=== PATIENT | female | born 1995 | race Caucasian/White ===

== ENCOUNTER 2018-04-17 11:34 | Emergency (ER) | payer OTHER ==
[2018-04-17] MEDS ORDERED: AMOXICILLIN/CLAVULANATE POT 875/125 MG TAB PO ONE (12:20)
--- NOTE | 2018-04-17 12:20 | EDPHY ---
H & P Smoking Status: Current every day smoker Time Seen by Provider: 04/17/18 11:59 HPI/ROS: CHIEF COMPLAINT: Dog bite left hand HISTORY OF PRESENT ILLNESS: 22-year-old female with up-to-date tetanus was her dogs from a dog fight and was bitten once on the web spacing the left 1st and 2nd digit. Complaining of pain. Occurred shortly prior to arrival. No foreign body sensation. No osseous discomfort. PHYSICAL EXAM (Prior to examination, patient consented to physical exam, hands were washed and my usual and customary physical exam procedures followed) 1) GENERAL: Well-developed, well-nourished, alert and oriented. Appears uncomfortable. 2) HEAD: Normocephalic 3) HEENT: Pupils equal, round, reactive to light bilaterally. 4) LUNGS: Breathing comfortably. 5) MUSCULOSKELETAL: Well-demarcated. Soft compartments. Normal coloration. Underlying osseous structures are nontender. No shortening or malrotation of the digits. Normal cascading of digits. 6) SKIN: Bite/laceration to the webspace to the 1st and 2nd digit, measuring 3 cm. 7) VASCULAR: pulses and cap refill present are brisk 8) NEUROLOGIC: Radial, ulnar, median nerve function intact with no deficits appreciated on exam DIFFERENTIAL DIAGNOSIS: in no particular order including but not limited to fracture, sprain, compartment syndrome Procedure: Wound management I explained the indications, risks and benefits for both laceration repair and anesthetic administration. Verbal consent was obtained from the patient. The laceration on the left hand web spacing 1st and 2nd digit was anesthetized using 0.5% bupivicaine with epinephrine. After anesthetic administered the patient was observed for a period of time and had no apparent adverse effects. The wound was cleaned, prepped, draped in normal sterile fashion and explored to its base. No foreign body seen, no foreign bodies palpated. Skin edges were reapproximated with 2 simple interrupted 5 O Prolene sutures as the tissue was butterflied when she moves her hand. The wound repair was simple. The procedure was performed by myself. Patient has been informed that scarring will occur, although efforts have been made to minimize this. Procedure: Splint A Velcro thumb spica splint was applied by ER energy technician. After application of the splint I returned and re-examined the patient. The splint was adequately immobilizing the joint and distal to the splint the patient's circulation and sensation were intact. Patient shows no signs of compartment syndrome. Was given orthopedic precautions. (Gordy Babcock) Constitutional: Initial Vital Signs Temperature (C) 36.9 C 04/17/18 11:39 Heart Rate 86 04/17/18 11:39 Respiratory Rate 18 04/17/18 11:39 Blood Pressure 132/87 H 04/17/18 11:39 O2 Sat (%) 96 04/17/18 11:39 O2 Delivery Mode Room Air Allergies/Adverse Reactions: No Known Allergies Allergy (Verified 04/17/18 11:39) Home Medications: Medication Instructions Recorded Amoxicillin/Clavulanate Pot 875 mg PO BID #10 tab 04/17/18 [Augmentin 875 mg tab] MIRENA 04/17/18 Topamax 04/17/18 MDM/Departure - MDM Medications Given: Discontinued Medications Amoxicillin/Clavulanate Potassium (Augmentin 875mg) 875 mg PO EDNOW ONE PRN Reason: Protocol Stop: 04/17/18 12:21 Last Admin: 04/17/18 12:20 Dose: 875 mg ED Course/Re-evaluation: Patient's wound was anesthetized with 1% lidocaine with epinephrine by myself prior to copious irrigation by ER staff. Wound is then re-examined and there are no foreign bodies visualized. I think that traumatic arthrotomy is less than likely. Due to its wide, butterfying nature I placed 2 suture of 5 0 Prolene to reapproximate skin edges which showed allow sufficient drainage opportunities. She is started on Augmentin. Given my usual and customary wound precautions and instructions I saw this patient independently based on established practice protocols. Care of patient under supervision of secondary supervising physician Dr Newman . ( Gordy Babcock) I did not see this patient while she was in the emergency department. However her care was discussed with the PA while the patient was in the department. I agree with treatment plan and management (Carlos Newman) - Depart Disposition: Home, Routine, Self-Care Clinical Impression: Dog bite of left hand Condition: Good Instructions: Animal Bite (ED) Additional Instructions: Return to the ER if you develop redness, swelling, discharge, warmth to the wound, red streaks going up your arm or any other symptoms that concern you. Prescriptions: Amoxicillin/Clavulanate Pot [Augmentin 875 mg tab] 875 mg PO BID #10 tab Referrals: Anujm Hickman MD [Medical Doctor] - 2-3 days, call for appt.
[2018-04-17 13:14] VITALS: BP 119/78
== END 2018-04-17 13:14 | disposition home or self-care (01) ==
PROC: 0HQGXZZ Repair Left Hand Skin, External Approach (ICD-10-PCS; principal; 2018-04-17)
DX: S61.452A Open bite of left hand, initial encounter (principal); W54.0XXA Bitten by dog, initial encounter; Y93.K9 Activity, other involving animal care
CPT/HCPCS: L3807

== ENCOUNTER 2018-05-13 14:15 | Emergency (ER) | payer OTHER ==
--- NOTE | 2018-05-13 14:44 | EDPHY ---
H & P Stated Complaint: Sent by for possible right groin hernia. Time Seen by Provider: 05/13/18 14:43 - Personal History LMP (Females 10-55): 15-21 Days Ago Current Tetanus Diphtheria and Acellular Pertussis (TDAP): Yes - Medical/Surgical History Hx Asthma: No Hx Chronic Respiratory Disease: No Hx Diabetes: No Hx Cardiac Disease: No Hx Renal Disease: No Hx Cirrhosis: No Hx Alcoholism: No Hx HIV/AIDS: No Hx Splenectomy or Spleen Trauma: No Other PMH: Migraines - Social History Smoking Status: Current every day smoker Constitutional: Initial Vital Signs Temperature (C) 36.4 C 05/13/18 14:20 Heart Rate 93 05/13/18 14:20 Respiratory Rate 16 05/13/18 14:20 Blood Pressure 120/59 L 05/13/18 14:20 O2 Sat (%) 98 05/13/18 14:20 O2 Delivery Mode Room Air Allergies/Adverse Reactions: No Known Allergies Allergy (Verified 04/17/18 11:39) Home Medications: Medication Instructions Recorded Amoxicillin/Clavulanate Pot 875 mg PO BID #10 tab 04/17/18 [Augmentin 875 mg tab] MIRENA 04/17/18 Topamax 04/17/18 Azithromycin [Zithromax] 250 mg PO DAILY #6 tab 05/13/18 Medical Decision Making - Diagnostics Imaging Results: Imaging Impressions Abdomen Ultrasound 05/13/18 14:53 Impression: Inguinal adenopathy: reactive versus infectious versus neoplastic. Results discussed with Dr. Yoni Coleman. Imaging: Discussed imaging studies w/ director trial Radiologist, I viewed and interpreted images myself ED Course/Re-evaluation: CHIEF COMPLAINT: Swollen lump on groin HISTORY OF PRESENT ILLNESS: The patient is a 22 y/o female complaining of a painful lump on her right groin. She first noticed the lump while camping in [place] 3 days ago. As her symptoms have not improved she decided to present to an Urgent Care, who advised that she present to the ED as she might have an inguinal hernia. The pain is exacerbated when coughing, going to the bathroom, sitting, standing. In addition to the groin pain she has had some pain and frequency while urinating which started this morning. She is also requesting an STD screening. No headache , fever, chest pain, shortness of breath, abdominal pain, bowel complaints, numbness, paresthesias. REVIEW OF SYSTEMS: A comprehensive 10 system review of systems is otherwise negative aside from elements mentioned in the history of present illness and medical decision making. PHYSICAL EXAM: HR, BP, O2 Sat, RR. Temp noted General Appearance: Alert, well hydrated, appropriate, and non-toxic appearing. Head: Atraumatic without scalp tenderness or obvious injury Eyes: Pupils equal, round, reactive to light and accommodation, EOMI, no trauma , no injection. Ears: Clear bilaterally, no perforation, normal landmarks Nose: Atraumatic, no rhinorrhea, clear. Throat: There is no erythema or exudates, no lesions, normal tonsils, mucus membranes moist. Neck: Supple, 2+ carotid upstroke, nontender, no lymphadenopathy. Respiratory: No retractions, no distress, no wheezes, and no accessory muscle use. Lungs are clear to auscultation bilaterally. Cardiovascular: Regular rate and rhythm, no murmurs, rubs, or gallops. Bilateral carotid, radial, dorsalis pedis, and posterior tibial pulses intact. Good capillary refill all extremities. Gastrointestinal: Abdomen is soft, nontender, non-distended, no masses, no rebound, no guarding, no peritoneal signs. : Right groin/femoral canal bulge, that has tenderness with palpation, not reducible, well-circumscribed Musculoskeletal: Normal active ROM of all extremities, atraumatic. Neurological: Alert, appropriate, and interactive. The patient has normal DTRs and non-focal cranial nerves, motor, sensory, and cerebellar exam. Skin: No rashes, good turgor, no nodules on palpation. Past medical history: Migraines Past surgical history: Denies Family history: Denies Social history: Single, student at , lives in [place] DIAGNOSTICS/PROCEDURES/CRITICAL CARE TIME: Abdominal US: Reactive groin lymph nodes DIFFERENTIAL DIAGNOSIS: The differential diagnosis for the patient's abdominal pain included but was not limited to inguinal hernia, enlarged lymph node, ovarian cyst, pelvic inflammatory disease, ovarian torsion, urinary tract infection, ectopic , cholecystitis, and appendicitis. MEDICAL DECISION MAKING: The patient is a 22 y/o female presenting with a painful lump on her right groin. On exam she has a right groin/femoral canal bulge, that has tenderness with palpation, is is not reducible, and is well-circumscribed. Labs ordered including STI testing, abdominal US ordered. 1512: Patient's Chem8 is unremarkable, STI testing and US still pending. 1527: I spoke with Dr. Chacon, radiologist, who reports that the patient has several reactive groin lymph nodes. 1548: Reassessed patient and discussed her laboratory findings which are consistent with a UTI and probable STI. 1 gm IV Ceftriaxone and 500mg PO Zithromax administered. I have also prescribed her Zithromax and advised her to follow up with a PCP without fail on Wednesday. Return precautions provided; patient is comfortable with this plan. - Data Points Laboratory Results: Laboratory Results 05/13/18 15:00 05/13/18 15:00 05/13/18 05/13/18 05/13/18 15:10 15:00 15:00 WBC RBC Hgb POC Hgb 15.0 gm/dL gm/dL (12.6-16.3) Hct POC Hct 44 % % (38-47) MCV MCH MCHC RDW Plt Count MPV Neut % (Auto) Lymph % (Auto) Island % (Auto) Eos % (Auto) Baso % (Auto) Nucleat RBC Rel Count Absolute Neuts (auto) Absolute Lymphs (auto) Absolute Monos (auto) Absolute Eos (auto) Absolute Basos (auto) Absolute Nucleated RBC Immature Gran % Immature Gran # POC Sodium 143 mEq/L mEq/L (135-145) Sodium POC Potassium 3.2 mEq/L L mEq/L (3.3-5.0) Potassium POC Chloride 106 mEq/L mEq/L (97-110) Chloride Carbon Dioxide Anion Gap POC BUN 11 mg/dL mg/dL (7-23) BUN Creatinine POC Creatinine 0.6 mg/dL mg/dL (0.6-1.0) Estimated GFR Glucose POC Glucose 86 mg/dL mg/dL (70-100) Calcium Urine Color YELLOW Urine Appearance HAZY Urine pH 5.0 (5.0-7.5) Ur Specific [place] 1.021 (1.002-1.030) Urine Protein NEGATIVE (NEGATIVE) Urine Ketones NEGATIVE (NEGATIVE) Urine Blood 1+ H (NEGATIVE) Urine Nitrate NEGATIVE (NEGATIVE) Urine Bilirubin NEGATIVE (NEGATIVE) Urine Urobilinogen NEGATIVE EU EU (0.2-1.0) Ur Leukocyte Esterase 2+ H (NEGATIVE) Urine RBC 5-10 /hpf H /hpf (0-3) Urine WBC 25-50 /hpf H /hpf (0-3) Ur Epithelial Cells 1+ /lpf /lpf (NONE-1+) Urine Bacteria 3+ /hpf H /hpf (NONE SEEN) Urine Mucus TRACE /lpf /lpf (NONE-1+) Urine Glucose NEGATIVE (NEGATIVE) C.trachomatis RNA (TMA) Pending N.gonorrhoeae RNA (TMA) Pending 05/13/18 05/13/18 15:00 15:00 WBC 10.04 10^3/uL H 10^3/uL (3.80-9.50) RBC 4.83 10^6/uL 10^6/uL (4.18-5.33) Hgb 13.8 g/dL g/dL (12.6-16.3) POC Hgb Hct 41.4 % % (38.0-47.0) POC Hct MCV 85.7 fL fL (81.5-99.8) MCH 28.6 pg pg (27.9-34.1) MCHC 33.3 g/dL g/dL (32.4-36.7) RDW 14.5 % % (11.5-15.2) Plt Count 246 10^3/uL 10^3/uL (150-400) MPV 11.7 fL fL (8.7-11.7) Neut % (Auto) 68.9 % % (39.3-74.2) Lymph % (Auto) 21.2 % % (15.0-45.0) Island % (Auto) 8.1 % % (4.5-13.0) Eos % (Auto) 1.2 % % (0.6-7.6) Baso % (Auto) 0.3 % % (0.3-1.7) Nucleat RBC Rel Count 0.0 % % (0.0-0.2) Absolute Neuts (auto) 6.92 10^3/uL H 10^3/uL (1.70-6.50) Absolute Lymphs (auto) 2.13 10^3/uL 10^3/uL (1.00-3.00) Absolute Monos (auto) 0.81 10^3/uL H 10^3/uL (0.30-0.80) Absolute Eos (auto) 0.12 10^3/uL 10^3/uL (0.03-0.40) Absolute Basos (auto) 0.03 10^3/uL 10^3/uL (0.02-0.10) Absolute Nucleated RBC 0.00 10^3/uL 10^3/uL (0-0.01) Immature Gran % 0.3 % % (0.0-1.1) Immature Gran # 0.03 10^3/uL 10^3/uL (0.00-0.10) POC Sodium Sodium 143 mEq/L mEq/L (135-145) POC Potassium Potassium 3.7 mEq/L mEq/L (3.3-5.0) POC Chloride Chloride 107 mEq/L mEq/L (97-110) Carbon Dioxide 25 mEq/l mEq/l (22-31) Anion Gap 11 mEq/L mEq/L (6-14) POC BUN BUN 12 mg/dL mg/dL (7-23) Creatinine 0.7 mg/dL mg/dL (0.6-1.0) POC Creatinine Estimated GFR > 60 Glucose 89 mg/dL mg/dL (70-100) POC Glucose Calcium 9.6 mg/dL mg/dL (8.5-10.4) Urine Color Urine Appearance Urine pH Ur Specific [place] Urine Protein Urine Ketones Urine Blood Urine Nitrate Urine Bilirubin Urine Urobilinogen Ur Leukocyte Esterase Urine RBC Urine WBC Ur Epithelial Cells Urine Bacteria Urine Mucus Urine Glucose C.trachomatis RNA (TMA) N.gonorrhoeae RNA (TMA) Point of Care Test Results: Chemistry 05/13/18 15:10 POC Sodium 143 mEq/L mEq/L (135-145) POC Potassium 3.2 mEq/L L mEq/L (3.3-5.0) POC Chloride 106 mEq/L mEq/L (97-110) POC BUN 11 mg/dL mg/dL (7-23) POC Creatinine 0.6 mg/dL mg/dL (0.6-1.0) POC Glucose 86 mg/dL mg/dL (70-100) ISTAT H&H 05/13/18 15:10 POC Hgb 15.0 gm/dL gm/dL (12.6-16.3) POC Hct 44 % % (38-47) Departure - Departure Disposition: Home, Routine, Self-Care Clinical Impression: Enlarged lymph node, STI (sexually transmitted infection) UTI (urinary tract infection) Qualifiers: Urinary tract infection type: site unspecified Hematuria presence: without hematuria Qualified Code(s): N39.0 - Urinary tract infection, site not specified Condition: Good Instructions: Sexually Transmitted Diseases (ED), Urinary Tract Infection in Women (ED), Lymphadenopathy (ED) Additional Instructions: 1. Take Zithromax as prescribed. Make sure to take the entire antibiotic course. 2. Follow-up with your primary doctor on Wednesday without fail. You can go to the [facility] or Dr. Mason. 3. Return to the Emergency Department for fever, chest pain, shortness of breath , increasing pain or other worsening of condition. Referrals: NONE *PRIMARY CARE P,. [Primary Care Provider] - As per Instructions [facility] [address] [Clinic] - As per Instructions Lulu Mason MD [Medical Doctor] - As per Instructions Prescriptions: Azithromycin [Zithromax] 250 mg PO DAILY #6 tab Report Scribed for: Yoni Coleman Report Scribed by: Aline Land Date of Report: 05/13/18 Time of Report: 14:45
[2018-05-13 15:28] LABS: PLATELET COUNT 246 10^3/uL (150-400)
[2018-05-13] MEDS ORDERED: AZITHROMYCIN 250 MG TAB PO ONE (15:42)
[2018-05-13 16:10] VITALS: BP 121/71
[2018-05-13 20:07] LABS: HEPATITIS A ANTIBODY IGM (BCH) NEGATIVE (NEGATIVE); HEPATITIS B CORE AB IGM NEGATIVE (NEGATIVE); HEPATITIS B SURFACE ANTIGEN NEGATIVE (NEGATIVE); HEPATITIS C ANTIBODY TOTAL NEGATIVE (NEGATIVE)
[2018-05-16 12:35] LABS: GC AMPLIFICATION GENPROBE POSITIVE (NEGATIVE)
== END 2018-05-13 16:19 | disposition home or self-care (01) ==
DX: R22.2 Localized swelling, mass and lump, trunk (principal); N39.0 Urinary tract infection, site not specified
CPT/HCPCS: 82435-PO; 82565-PO; 82947-PO; 84132-PO; 84295-PO; 84520-PO; 85014-PO; 86694-90; 96374; G0472; J0696

== ENCOUNTER 2018-10-14 20:10 | Emergency (ER) | payer OTHER ==
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
[2018-10-14] MEDS ORDERED: IOPAMIDOL (ISOVUE-370) 150 ML BTL IV ONE (21:41)
[2018-10-14] MEDS ORDERED: HYDROmorphONE/DILAUDID 2 MG/ML INJ IVP ONE ×2 (21:43→22:30)
[2018-10-14] MEDS ORDERED: HYDROmorphONE/DILAUDID 1 MG/ML INJ ONE ×2 (22:01→22:48)
[2018-10-14] MEDS ORDERED: HYDROCOD/APAP 5/325 PREPACK#6 BTL TAKEHOME ONE (23:39)
[2018-10-15 00:13] VITALS: BP 112/72
== END 2018-10-15 00:13 | disposition home or self-care (01) ==
PROC: 2W3FX1Z Immobilization of Left Hand using Splint (ICD-10-PCS; principal; 2018-10-14)
DX: S62.327A Displaced fracture of shaft of fifth metacarpal bone, left hand, initial encounter for closed fracture (principal); S01.81XA Laceration without foreign body of other part of head, initial encounter; S01.21XA Laceration without foreign body of nose, initial encounter; S00.511A Abrasion of lip, initial encounter; S70.311A Abrasion, right thigh, initial encounter; S91.312A Laceration without foreign body, left foot, initial encounter; S90.412A Abrasion, left great toe, initial encounter; S90.811A Abrasion, right foot, initial encounter; G43.909 Migraine, unspecified, not intractable, without status migrainosus; Y04.8XXA Assault by other bodily force, initial encounter; Y99.9 Unspecified external cause status
CPT/HCPCS: 82435-PO; 82565-PO; 82947-PO; 84132-PO; 84295-PO; 84520-PO; 85014-ER; 96374; J1170; Q9967

== ENCOUNTER 2018-10-25 16:53 | Emergency (ER) | payer OTHER ==
--- NOTE | 2018-10-25 17:32 | EDPHY ---
H & P Stated Complaint: blood in stool Time Seen by Provider: 10/25/18 17:31 HPI/ROS: CHIEF COMPLAINT: Hematochezia HISTORY OF PRESENT ILLNESS: The patient presents the ED with a 1 day history of hematochezia. She has a somewhat complicated past medical history with a history of hematochezia over the past year. She was seen by gastrointestinal specialist who performed endoscopy and colonoscopy without an obvious source. She had 2 swallowed can was without an obvious source. She ultimately saw on homeopathic doctor who diagnosed her with food allergies. The patient denies any recent antibiotic use. She does complain of feeling slightly lightheaded. She had mild left lower quadrant pain earlier today which resolved. The patient has been taking Emmons for a an injury recently sustained to her left hand. She has had some constipation. She did have a painful bowel movement yesterday. REVIEW OF SYSTEMS: A comprehensive 10 point review of systems is otherwise negative aside from elements mentioned in the history of present illness. Source: Patient Exam Limitations: No limitations - Personal History Current Tetanus/Diphtheria Vaccine: Yes Current Tetanus Diphtheria and Acellular Pertussis (TDAP): Yes - Medical/Surgical History Hx Asthma: No Hx Chronic Respiratory Disease: No Hx Diabetes: No Hx Cardiac Disease: No Hx Renal Disease: No Hx Cirrhosis: No Hx Alcoholism: No Hx HIV/AIDS: No Hx Splenectomy or Spleen Trauma: No Other PMH: Von Willibrand's, Migraines, campalobacter - Social History Smoking Status: Current every day smoker - Physical Exam Exam: General Appearance: Alert, no distress Eyes: Pupils equal and round no pallor or injection ENT, Mouth: Mucous membranes moist Respiratory: There are no retractions, lungs are clear to auscultation Cardiovascular: Regular rate and rhythm Gastrointestinal: Abdomen is soft and nontender, no masses, bowel sounds normal Neurological: 5/5 strength all 4 extremities Skin: Warm and dry, no rashes Musculoskeletal: Neck is supple nontender Extremities: symmetrical, full range of motion Constitutional: Initial Vital Signs Temperature (C) 37.5 C 10/25/18 17:23 Heart Rate 94 10/25/18 17:23 Respiratory Rate 16 10/25/18 17:23 Blood Pressure 132/76 H 10/25/18 17:23 O2 Sat (%) 96 10/25/18 17:23 O2 Delivery Mode Room Air Allergies/Adverse Reactions: ibuprofen Allergy (Verified 10/25/18 17:22) Home Medications: Medication Instructions Recorded MIRENA 04/17/18 Topamax 04/17/18 Hydrocodone/APAP 5/325 [Emmons 1 - 2 tab PO Q6H PRN #20 tab 10/14/18 5/325 (*)] Ondansetron Odt [Zofran Odt] 4 mg PO Q4PRN PRN #20 tab 10/25/18 Spironolactone 10/25/18 Medical Decision Making ED Course/Re-evaluation: The patient did show me a picture of her bowel movement earlier today which demonstrate bright red blood in the toilet bowl. The patient's abdominal examination is benign. The patient's laboratory studies are within normal limits. She was given Zofran in the emergency department. Given the fact that she had a painful bowel movement then developed hematochezia I am fairly suspicious that she has a rectal fissure. The patient is comfortable observing her symptoms. She had no recurrent GI bleeding in the emergency department. The patient does plan to follow up with her regular vp security. The patient was advised to return to the ED for markedly worsening symptoms of bleeding or other concerns. Differential Diagnosis: Differential diagnosis considered includes gastroenteritis, rectal fissure, internal hemorrhoid - Data Points Laboratory Results: Laboratory Results 10/25/18 17:50 10/25/18 17:50 10/25/18 10/25/18 10/25/18 17:50 17:50 17:50 WBC 5.87 10^3/uL 10^3/uL (3.80-9.50) RBC 4.56 10^6/uL 10^6/uL (4.18-5.33) Hgb 13.5 g/dL g/dL (12.6-16.3) Hct 39.4 % % (38.0-47.0) MCV 86.4 fL fL (81.5-99.8) MCH 29.6 pg pg (27.9-34.1) MCHC 34.3 g/dL g/dL (32.4-36.7) RDW 12.5 % % (11.5-15.2) Plt Count 268 10^3/uL 10^3/uL (150-400) MPV 11.2 fL fL (8.7-11.7) Neut % (Auto) 56.9 % % (39.3-74.2) Lymph % (Auto) 32.4 % % (15.0-45.0) [place] % (Auto) 8.0 % % (4.5-13.0) Eos % (Auto) 2.0 % % (0.6-7.6) Baso % (Auto) 0.5 % % (0.3-1.7) Nucleat RBC Rel Count 0.0 % % (0.0-0.2) Absolute Neuts (auto) 3.34 10^3/uL 10^3/uL (1.70-6.50) Absolute Lymphs (auto) 1.90 10^3/uL 10^3/uL (1.00-3.00) Absolute Monos (auto) 0.47 10^3/uL 10^3/uL (0.30-0.80) Absolute Eos (auto) 0.12 10^3/uL 10^3/uL (0.03-0.40) Absolute Basos (auto) 0.03 10^3/uL 10^3/uL (0.02-0.10) Absolute Nucleated RBC 0.00 10^3/uL 10^3/uL (0-0.01) Immature Gran % 0.2 % % (0.0-1.1) Immature Gran # 0.01 10^3/uL 10^3/uL (0.00-0.10) Sodium 136 mEq/L mEq/L (135-145) Potassium 4.1 mEq/L mEq/L (3.5-5.2) Chloride 103 mEq/L mEq/L (97-110) Carbon Dioxide 22 mEq/l mEq/l (22-31) Anion Gap 11 mEq/L mEq/L (6-14) BUN 14 mg/dL mg/dL (7-23) Creatinine 0.7 mg/dL mg/dL (0.6-1.0) Estimated GFR > 60 Glucose 103 mg/dL H mg/dL (70-100) Calcium 10.0 mg/dL mg/dL (8.5-10.4) Beta HCG, Qual NEGATIVE Medications Given: Discontinued Medications Sodium Chloride (Ns) 1,000 mls @ 0 mls/hr IV EDNOW ONE; Wide Open PRN Reason: Protocol Stop: 10/25/18 17:41 Last Admin: 10/25/18 18:08 Dose: 1,000 mls Ondansetron HCl (Zofran) 4 mg IVP EDNOW ONE Stop: 10/25/18 18:07 Last Admin: 10/25/18 18:08 Dose: 4 mg Departure - Departure Disposition: Home, Routine, Self-Care Clinical Impression: Hematochezia Condition: Good Instructions: Rectal Bleeding (ED) Additional Instructions: 1. Please contact your vp security tomorrow to schedule a follow-up visit. 2. Please return to the emergency department immediately for heavy bleeding, increasing pain, lightheadedness or other concerns. 3. Zofran as needed for nausea. Referrals: Robbie Gutierrez MD [Primary Care Provider] - As per Instructions
[2018-10-25] MEDS ORDERED: NS 1,000 ML IV ONE (17:40)
[2018-10-25] MEDS ORDERED: ONDANSETRON 4 MG/2 ML VIAL ONE (18:06)
[2018-10-25] MEDS ORDERED: ONDANSETRON 4 MG/2 ML VIAL IVP ONE (18:06)
[2018-10-25 18:24] LABS: PLATELET COUNT 268 10^3/uL (150-400)
[2018-10-25 19:12] VITALS: BP 125/76
== END 2018-10-25 19:33 | disposition home or self-care (01) ==
DX: K92.1 Melena (principal); E86.9 Volume depletion, unspecified; F17.200 Nicotine dependence, unspecified, uncomplicated; G43.909 Migraine, unspecified, not intractable, without status migrainosus; D68.0 Von Willebrand disease
CPT/HCPCS: 96374; J2405